=== PATIENT | female | born 1990 | race Caucasian/White ===

== ENCOUNTER → 2016-08-27 | Outpatient (CLI) | payer BC ==
--- NOTE | 2016-08-27 12:59 | DIAGNOSTIC IMAGING REPORT ---
LEFT CLAVICLE 2 VIEWS CLINICAL HISTORY: Chronic left clavicular pain. FINDINGS: 2 views of the left clavicle are obtained. No prior studies are available for comparison at the time of dictation. The skeletal structures are well mineralized. No fracture is seen. The left acromioclavicular and sternoclavicular joints appear preserved. The glenohumeral articulation is normal as imaged. The overlying soft tissues are within normal limits. Imaged left apical lung parenchyma appears clear. IMPRESSION: Unremarkable radiographic assessment of the left clavicle. Electronically signed by: Didier Rosenthal M.D. 08/27/2016 12:58 PM Dictated Date/Time: 08/27/2016 12:57 PM
== END | disposition home or self-care (01) ==
LOC: C.RADBC 12:46
PROVIDERS: ATTEND Family Medicine
DX: M25.519 Pain in unspecified shoulder (principal)

== ENCOUNTER → 2017-04-06 | Outpatient (CLI) | payer BC ==
[2017-04-09 02:32] LABS: CHLAMYDIA TRACH RNA*** NOT DETECTED (NOT DETECTED); GC (NEIS GONORRHOEAE)RNA** NOT DETECTED (NOT DETECTED)
== END | disposition home or self-care (01) ==
LOC: C.LABSPEC 15:49
PROVIDERS: ATTEND Physician Assistant
DX: Z01.419 Encounter for gynecological examination (general) (routine) without abnormal findings (principal)

== ENCOUNTER → 2017-04-06 | Outpatient (CLI) | payer BC | END | disposition home or self-care (01) | LOC: C.PAPS 16:29 | PROVIDERS: ATTEND Physician Assistant | DX: Z01.419 Encounter for gynecological examination (general) (routine) without abnormal findings (principal) ==